=== PATIENT | female | born 1940 | race Caucasian/White ===

== ENCOUNTER 2018-08-18 07:19 | Inpatient (IN) ==
--- NOTE | 2018-08-18 07:55 | ED ---
HPI General Chief Complaint: Fall Stated Complaint: Hip/Fall Complaint Time Seen by Provider: 08/18/18 07:42 Source: patient Mode of arrival: ambulatory Limitations: no limitations History of Present Illness HPI Narrative: 78-year-old female patient with history of hypothyroidism, hypertension, currently on Eliquis, presents to the ER today because she states that she had fallen in the bathroom early this morning, fell onto her right hip area and had significant right hip pain, unable to get back on her feet, but was able to pull herself back up and get back into bed to wait for help. She denies hitting her head, loss of consciousness, or any other issues. She states that she slipped and fell. Related Data Home Medications Medication Instructions Recorded Confirmed apixaban [Eliquis] 5 mg PO BID 08/18/18 08/18/18 atenolol 25 mg PO DAILY 08/18/18 08/18/18 estradiol 1 mg PO DAILY 08/18/18 08/18/18 irbesartan 300 mg PO DAILY 08/18/18 08/18/18 levothyroxine 100 mcg PO DAILY 08/18/18 08/18/18 loratadine 10 mg PO DAILY 08/18/18 08/18/18 omeprazole 20 mg PO DAILY 08/18/18 08/18/18 rosuvastatin 10 mg PO DAILY 08/18/18 08/18/18 Allergies Allergy/AdvReac Type Severity Reaction Status Date / Time penicillin G Allergy Severe Rash Verified 08/18/18 07:48 Review of Systems ROS: all other systems reviewed are negative PMFSH History History Provided By: Patient Medical History Medical History 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 Awake and oriented x3. SKIN: Focused skin assessment warm/dry. HEAD: Atraumatic. Normocephalic. EYES: Pupils equal and round. No scleral icterus. No injection or drainage. ENT: No nasal bleeding or discharge. Mucous membranes pink and moist. NECK: Trachea midline. No JVD. CARDIOVASCULAR: Regular rate and rhythm. No murmur appreciated. RESPIRATORY: No accessory muscle use. Clear to auscultation. Breath sounds equal bilaterally. GASTROINTESTINAL: Abdomen soft, non-tender, nondistended. Hepatic and splenic margins not palpable. EXTREMITIES: No clubbing, cyanosis, or edema. No joint tenderness, effusion, or edema noted. Pelvis is stable, tender palpation in the right hip. Hip is held in external rotation, decreased flexion secondary to pain. MUSCULOSKELETAL: No obvious deformities. No clubbing. No cyanosis. No edema. NEUROLOGICAL: Awake and alert. No obvious cranial nerve deficits. Motor grossly within normal limits. Normal speech. PSYCHIATRIC: Appropriate mood and affect; insight and judgment normal. Course Initial Documented Vital Signs Temperature 98.1 F 08/18/18 07:35 Pulse Rate 67 08/18/18 07:35 Respiratory Rate 22 08/18/18 07:35 Blood Pressure 201/79 H 08/18/18 07:35 Last Documented Vital Signs Temperature 98.1 F 08/18/18 07:35 Pulse Rate 67 08/18/18 07:35 Respiratory Rate 22 08/18/18 07:35 Blood Pressure 201/79 H 08/18/18 07:35 Medical Decision Making MDM Narrative Medical decision making narrative: Patient has a subcapital right hip fracture. Case is discussed with Dr. Jaeger who plans to take her to the OR today. Case was discussed with Dr. Biggs for admission for further medical management. Medical Screen Exam Complete: Yes Emergency Medical Condition: Yes Differential Diagnosis Differential Diagnosis: Fractures versus dislocation versus contusion versus strain Lab Data Lab results reviewed: Yes I reviewed the patient's lab results. Result diagrams: 08/18/18 07:51 08/18/18 07:51 Lab Results 08/18/18 08/18/18 Range/Units 07:51 07:51 WBC 6.2 (4.0-11.0) th/mm3 RBC 4.37 (4.00-5.30) mil/mm3 Hgb 13.1 (11.6-15.3) gm/dL Hct 39.0 (35.0-46.0) % MCV 89.3 (80.0-100.0) fL MCH 30.1 (27.0-34.0) pg MCHC 33.7 (32.0-36.0) % RDW 14.1 (11.6-17.2) % Plt Count 175 (150-450) th/mm3 MPV 8.1 (7.0-11.0) fL Neut % (Auto) 64.8 (16.0-70.0) % Lymph % (Auto) 25.8 (9.0-44.0) % [place] % (Auto) 7.4 (0.0-8.0) % Eos % (Auto) 1.4 (0.0-4.0) % Baso % (Auto) 0.6 (0.0-2.0) % Neut # (Auto) 4.0 (1.8-7.7) th/mm3 Lymph # (Auto) 1.6 (1.0-4.8) th/mm3 [place] # (Auto) 0.5 (0.0-0.9) th/mm3 Eos # (Auto) 0.1 (0.0-0.4) th/mm3 Baso # (Auto) 0.0 (0.0-0.2) th/mm3 WBC Differential . Differential Comment Auto diff final Sodium 132 L (136-145) meq/L Potassium 3.8 (3.5-5.1) meq/L Chloride 100 (98-107) meq/L Carbon Dioxide 23.8 (21.0-32.0) meq/L Anion Gap 8 (5-15) meq/L BUN 19 H (7-18) mg/dL Creatinine 1.14 H (0.50-1.00) mg/dL Estimated GFR 46 L (>89) mL/min Random Glucose 104 (74-106) mg/dL Calcium 8.7 (8.5-10.1) mg/dL Total Bilirubin 0.3 (0.2-1.0) mg/dL AST 23 (15-37) U/L ALT 27 (10-53) U/L Alkaline Phosphatase 74 (45-117) U/L Total Protein 6.8 (6.4-8.2) g/dL Albumin 3.6 (3.4-5.0) g/dL Imaging Data Attestation: I personally reviewed and interpreted this imaging study as follows : Radiologist's impression: Chest X-Ray 08/18/18 07:42 CONCLUSION: No acute cardiopulmonary disease. Hip X-Ray 08/18/18 07:42 CONCLUSION: Right subcapital hip fracture. Discharge Plan Discharge Disposition Patient Disposition: 30 Still Patient Discharge Condition Condition: Good Discharge Details Anticipated Discharge Date: 08/18/18 Diagnosis: Closed hip fracture Physicians Team ED Provider: Anupama Logan Primary Care Provider: Raimundo Vogel Attending Provider: David Biggs Status ED Status: Admitted Patient
[2018-08-18 08:05] LABS: Baso % (Auto) 0.6 % (0.0-2.0); Eos # (Auto) 0.1 th/mm3 (0.0-0.4); Eos % (Auto) 1.4 % (0.0-4.0); Hemoglobin 13.1 gm/dL (11.6-15.3); Lymph # (Auto) 1.6 th/mm3 (1.0-4.8); Lymph % (Auto) 25.8 % (9.0-44.0); Mean Corpuscular HGB Conc 33.7 % (32.0-36.0); Mean Corpuscular Hemoglobin 30.1 pg (27.0-34.0); Mean Corpuscular Volume 89.3 fL (80.0-100.0); Mean Platelet Volume 8.1 fL (7.0-11.0); Mono # (Auto) 0.5 th/mm3 (0.0-0.9); Mono % (Auto) 7.4 % (0.0-8.0); Neut % (Auto) 64.8 % (16.0-70.0); Platelet Count 175 th/mm3 (150-450); Red Blood Count 4.37 mil/mm3 (4.00-5.30); Red Cell Distribution Width 14.1 % (11.6-17.2); White Blood Count 6.2 th/mm3 (4.0-11.0)
--- NOTE | 2018-08-18 08:26 | XR ---
EXAM DATE: 08/18/2018 7:42 AM EDT AGE/SEX: 78 years / Female INDICATIONS: Chest pain after fall. CLINICAL DATA: This is the patient's initial encounter. Patient reports that signs and symptoms have been present for 1 day and indicates a pain score of 5/10. MEDICAL/SURGICAL HISTORY: None. None. COMPARISON: No prior exams available for comparison. FINDINGS: 2 AP supine views of the chest were obtained and demonstrate no confluent infiltrates or effusions. T he heart and mediastinal structures are within normal limits. The soft tissues and bony thorax are un remarkable. There are overlying electrical artery gram leads. CONCLUSION: No acute cardiopulmonary disease. Electronically signed by: Greg Pacheco MD 08/18/2018 8:25 AM EDT
[2018-08-18 08:27] LABS: Alanine Aminotransferase 27 U/L (10-53)
[2018-08-18 08:29] LABS: Alkaline Phosphatase 74 U/L (45-117); Total Protein 6.8 g/dL (6.4-8.2)
[2018-08-18 08:31] LABS: Albumin 3.6 g/dL (3.4-5.0); Anion Gap 8 meq/L (5-15); Aspartate Aminotransferase 23 U/L (15-37); Blood Urea Nitrogen 19 mg/dL (7-18); Calcium 8.7 mg/dL (8.5-10.1); Carbon Dioxide 23.8 meq/L (21.0-32.0); Chloride 100 meq/L (98-107); Glomerular Filtration Rate 46 mL/min (>89); Glucose,Random 104 mg/dL (74-106); Potassium 3.8 meq/L (3.5-5.1); Sodium 132 meq/L (136-145)
--- NOTE | 2018-08-18 08:33 | XR ---
EXAM DATE: 08/18/2018 7:42 AM EDT AGE/SEX: 78 years / Female INDICATIONS: Right hip pain after fall. Decreased range of motion.. CLINICAL DATA: This is the patient's initial encounter. Patient reports that signs and symptoms have been present for 1 day and indicates a pain score of 10/10. MEDICAL/SURGICAL HISTORY: None. None. COMPARISON: No prior exams available for comparison. FINDINGS: AP and crosstable lateral views of the right hip were obtained and demonstrate a subcapital fracture with mild localized rotation of the femoral head component and slight superior migration of the or di stal femur. There is diffuse osteopenia. The acetabulum and right pubic rami are intact. CONCLUSION: Right subcapital hip fracture. Electronically signed by: Greg Pacheco MD 08/18/2018 8:32 AM EDT
[2018-08-18] MEDS ORDERED: HYDROmorphone PF Inj 2 MG/ML Vial IV.PUSH ONE (09:14)
[2018-08-18] MEDS ORDERED: Acetaminophen 325 MG Tablet PO PRN (09:39)
[2018-08-18] MEDS ORDERED: HYDROmorphone PF Inj 0.5 MG/0.5 ML Syringe IV.PUSH PRN (09:42)
--- NOTE | 2018-08-18 10:33 | P.HP ---
History of Present Illness Primary Care Physician: Raimundo Vogel History of Present Illness: 78-year-old female with a history of atrial fibrillation, hypothyroidism, lumbar stenosis, presents to the ER after suffering a right side hip fracture early this morning. She states she wakes approximately every 2 hours due to incontinence issues, after urinating she tripped on her pajamas at her ankles and fell onto her right hip experiencing immediate pain and inability to get up. She denies any trauma to her upper extremities or shoulders or head. She has a history of lumbar stenosis which is made her balance impaired in her lower extremities, she has been using a cane or walker at times at her baseline. She walks around the house without effort, but tires easily when she is out shopping. Her atrial fibrillation was diagnosed 2 years ago, it is paroxysmal and occurs episodically only every few days. Currently in the ER despite her stress she has a normal sinus rhythm. Hypothyroidism is well managed and she has no other major medical issues. She denies any nausea vomiting or diarrhea. Denies dysuria, denies chest pain, denies shortness of breath, denies diaphoresis, denies any clotting disorder. Her last dose of Eliquis was greater than 24 hours ago, she skipped this morning's dose. Inpatient Certification: I certify that the inpatient services were ordered in accordance with Medicare regulations governing the order. This includes certification that hospital inpatient services are reasonable and necessary and in the case of services not specified as inpatient-only under 42 CFR 419.22(n), that they are appropriately provided as inpatient services in accordance to with the 2-midnight benchmark under 43 CFR 412.3(e) Estimated Total Length of Stay (Days): 4 Plans for Post Hospital Care: Not yet determined Review of Systems All other systems reviewed negative except as stated in HPI PMFSH - History History Provided By: Patient - Medical History Medical History: Medical History (Last Updated 08/18/18 @ 10:25 by David Biggs MD) Atrial fibrillation GBS (Guillain [place] syndrome) Hypertension TIA (transient ischemic attack) - Surgical History Surgical History: Surgical History (Last Updated 08/18/18 @ 10:26 by David Biggs MD) H/O dilation and curettage - Family History Family History: Family History (Last Updated 08/18/18 @ 10:26 by David Biggs MD) Other Hypertension - Tobacco History Second Hand Smoke Exposure: No Smoking Status: Never smoker - Alcohol History How Often Do You Have a Drink Containing Alcohol: Monthly or less - Immunization History Tetanus Immunization: >5 Years Medications and Allergies Active Medications: Active Medications Acetaminophen (Tylenol) 650 mg PO Q4H PRN PRN Reason: Temp > 100.4 Hydromorphone HCl (Dilaudid Pf Inj) 0.5 mg IV.PUSH Q4H PRN PRN Reason: Hip Pain Sodium Chloride (Ns Inj) 1,000 mls @ 42 mls/hr IV.CONT .[id number] [facility] Ondansetron HCl (Zofran Inj) 4 mg IV.PUSH Q6H PRN PRN Reason: NAUSEA OR VOMITING Sennosides (Senokot) 17.2 mg PO Q12H PRN PRN Reason: Moderate Constipation Allergies Allergy/AdvReac Type Severity Reaction Status Date / Time penicillin G Allergy Severe Rash Verified 08/18/18 07:48 Home Medications Medication Instructions Recorded Confirmed Type apixaban [Eliquis] 5 mg PO BID 08/18/18 08/18/18 History atenolol 25 mg PO DAILY 08/18/18 08/18/18 History estradiol 1 mg PO DAILY 08/18/18 08/18/18 History irbesartan 300 mg PO DAILY 08/18/18 08/18/18 History levothyroxine 100 mcg PO DAILY 08/18/18 08/18/18 History loratadine 10 mg PO DAILY 08/18/18 08/18/18 History omeprazole 20 mg PO DAILY 08/18/18 08/18/18 History rosuvastatin 10 mg PO DAILY 08/18/18 08/18/18 History Exam Vital signs: Vital Signs 08/18/18 07:35 Temperature 98.1 F Pulse Rate 67 Respiratory Rate 22 Blood Pressure 201/79 H Intake & Output 08/17/18 08/18/18 08/18/18 18:59 06:59 18:59 Weight 95 kg Narrative: GENERAL: AAOx3, no acute distress, adequate nutrition SKIN: Warm and dry, no rashes. HEAD: Atraumatic. Normocephalic. EYES: Pupils equal, round, reactive to light. No scleral icterus. No injection or drainage. ENT: No nasal bleeding or discharge. Moist mucous membranes. Nonerythematous oropharynx. NECK: Trachea midline. No JVD. Thyroid size within normal limits. CARDIOVASCULAR: Regular rate and rhythm. No murmur, no gallops, no rubs. RESPIRATORY: Clear and equal to auscultation bilaterally. No crackles, no wheezes. No accessory muscle use. GASTROINTESTINAL: Abdomen soft, non-tender, nondistended, normal active bowel sounds. Hepatic and splenic margins not palpable. MUSCULOSKELETAL: Right hip with reduced range of motion secondary to fracture, tender, right foot slightly laterally angled NEUROLOGICAL: Awake and alert. No obvious cranial nerve deficits. Motor grossly within normal limits. No focal deficits. Five out of 5 muscle strength in the arms and legs. Normal speech. PSYCHIATRIC: Appropriate mood and affect; insight and judgment normal. Results - Labs CBC & Chem 7: 08/18/18 07:51 08/18/18 07:51 Labs: Laboratory Results - last 24 hr 08/18/18 08/18/18 07:51 07:51 WBC 6.2 RBC 4.37 Hgb 13.1 Hct 39.0 MCV 89.3 MCH 30.1 MCHC 33.7 RDW 14.1 Plt Count 175 MPV 8.1 Neut % (Auto) 64.8 Lymph % (Auto) 25.8 [place] % (Auto) 7.4 Eos % (Auto) 1.4 Baso % (Auto) 0.6 Neut # (Auto) 4.0 Lymph # (Auto) 1.6 [place] # (Auto) 0.5 Eos # (Auto) 0.1 Baso # (Auto) 0.0 WBC Differential . Differential Comment Auto diff final Sodium 132 L Potassium 3.8 Chloride 100 Carbon Dioxide 23.8 Anion Gap 8 BUN 19 H Creatinine 1.14 H Estimated GFR 46 L Random Glucose 104 Calcium 8.7 Total Bilirubin 0.3 AST 23 ALT 27 Alkaline Phosphatase 74 Total Protein 6.8 Albumin 3.6 - Imaging Impressions Chest X-Ray 08/18/18 07:42 CONCLUSION: No acute cardiopulmonary disease. Hip X-Ray 08/18/18 07:42 CONCLUSION: Right subcapital hip fracture. Caprini VTE Risk Assessment Caprini VTE Risk Assessment: Moderate/High Risk (score >= 2) Caprini Risk Assessment Model: Point Value = 1 Point Value = 2 Point Value = 3 Point Value = 5 Age 41-60 Minor surgery BMI > 25 kg/m2 Swollen legs Varicose veins or History of unexplained or recurrent spontaneous Oral contraceptives or hormone replacement Sepsis (< 1 month) Serious lung disease, including pneumonia (< 1 month) Abnormal pulmonary function Acute myocardial infarction Congestive heart failure (< 1 month) History of inflammatory bowel disease Medical patient at bed rest Age 61-74 Arthroscopic surgery Major open surgery (> 45 min) Laparoscopic surgery (> 45 min) Malignancy Confined to bed (> 72 hours) Immobilizing plaster cast Central venous access Age >= 75 History of VTE Family history of VTE Factor V Leiden Prothrombin [id number] Lupus anticoagulant Anticardiolipin antibodies Elevated serum homocysteine Heparin-induced thrombocytopenia Other congenital or acquired thrombophilia Stroke (< 1 month) Elective arthroplasty Hip, pelvis, or leg fracture Acute spinal cord injury (< 1 month) Prophylaxis Regimen: Total Risk Factor Score Risk Level Prophylaxis Regimen 0-1 Low Early ambulation 2 Moderate Order ONE of the following: *Sequential Compression Device (SCD) *Heparin 5000 units SQ BID 3-4 Higher Order ONE of the following medications: *Heparin 5000 units SQ TID *Enoxaparin/Lovenox 40 mg SQ daily (WT < 150 kg, CrCl > 30 mL/min) *Enoxaparin/Lovenox 30 mg SQ daily (WT < 150 kg, CrCl > 10-29 mL/min) *Enoxaparin/Lovenox 30 mg SQ BID (WT < 150 kg, CrCl > 30 mL/min) AND/OR *Sequential Compression Device (SCD) 5 or more Highest Order ONE of the following medications: *Heparin 5000 units SQ TID (Preferred with Epidurals) *Enoxaparin/Lovenox 40 mg SQ daily (WT < 150 kg, CrCl > 30 mL/min) *Enoxaparin/Lovenox 30 mg SQ daily (WT < 150 kg, CrCl > 10-29 mL/min) *Enoxaparin/Lovenox 30 mg SQ BID (WT < 150 kg, CrCl > 30 mL/min) AND *Sequential Compression Device (SCD) Assessment and Plan - Plan Right hip fracture Subcapital fracture of right hip following fall at home onto the bathroom floor This is her first fracture, her first surgery Her last dose of Eliquis was greater than 24 hours ago, yesterday morning, she skipped this morning's dose Orthopedics is consulted and requesting medical clearance Patient will be kept n.p.o. for likely surgery later today Appreciate orthopedics consult h/o atrial fibrillation Patient takes Eliquis for paroxysmal atrial fibrillation, infrequent occurrence She is currently in normal sinus rhythm without any cardiac arrhythmias on heart monitor She had a full cardiac workup within the last 2 years including stress test which was negative Continue to monitor on telemetry, resume Eliquis postop when safe h/o hypothyroidism Continue home dose of levothyroxine when p.o. resumed h/o spinal stenosis Patient has some debility from chronic spinal stenosis, she uses walker or cane outside of home Based on her function is possible she will need rehab placement upon discharge DVT prophylaxis SCDs prior to surgery, resume Eliquis postop, timing per discretion of orthopedic surgeon Medical clearance for surgery She has a complete cardiac workup which was negative in the last 2 years, stable normal sinus rhythm despite periodic episodes of A. fib She is overall low to moderate risk profile and should be considered medically cleared for surgery
[2018-08-18] MEDS: Sod Chloride 0.9% Inj 1,000 ML IV.CONT SCH (12:29)
[2018-08-18] MEDS ORDERED: HYDROmorphone PF Inj 1 MG/ML Ampul IV.PUSH ONE (12:30)
--- NOTE | 2018-08-18 13:01 | P.CONOP ---
[facility] Orthopedics Consult Note - HPI Consult date: 08/18/18 Chief complaint: fall, hip fracture Review of Systems Constitutional: Denies fever(s), Denies night sweats, Denies weight loss Eyes: Denies blurry vision Ears, Nose, Mouth, and Throat: Denies abnormal hearing Cardiovascular: Denies chest pain Respiratory: Denies chest congestion, Denies cough Gastrointestinal: Denies abdominal pain, Denies vomiting Musculoskeletal: Reports joint pain Neurologic: Denies tingling/numbness/burning sensations Psychiatric: Denies anxiety, Denies depression [facility] - History History Provided By: Patient - Medical History Medical History: Medical History (Last Updated 08/18/18 @ 10:25 by David Biggs MD) Atrial fibrillation GBS (Guillain [place] syndrome) Hypertension TIA (transient ischemic attack) - Surgical History Surgical History: Surgical History (Last Reviewed 08/18/18 @ 12:56 by Agapito Meyers MD) H/O dilation and curettage - Family History Family History: Family History (Last Updated 08/18/18 @ 10:26 by David Biggs MD) Other Hypertension - Tobacco History Second Hand Smoke Exposure: No Smoking Status: Never smoker - Alcohol History How Often Do You Have a Drink Containing Alcohol: Monthly or less - Immunization History Tetanus Immunization: >5 Years Medications and Allergies Active Medications: Active Medications Acetaminophen (Tylenol) 650 mg PO Q4H PRN PRN Reason: Temp > 100.4 Atenolol (Tenormin) 25 mg PO DAILY [facility] Hydromorphone HCl (Dilaudid Pf Inj) 0.5 mg IV.PUSH Q4H PRN PRN Reason: Hip Pain Sodium Chloride (Ns Inj) 1,000 mls @ 42 mls/hr IV.CONT .[id number] [facility] Last Admin: 08/18/18 12:29 Dose: 42 mls/hr Levothyroxine Sodium (Synthroid) 100 mcg PO DAILY [facility] Ondansetron HCl (Zofran Inj) 4 mg IV.PUSH Q6H PRN PRN Reason: NAUSEA OR VOMITING Pantoprazole Sodium (Protonix) 20 mg PO DAILY [facility] Sennosides (Senokot) 17.2 mg PO Q12H PRN PRN Reason: Moderate Constipation Allergies Allergy/AdvReac Type Severity Reaction Status Date / Time penicillin G Allergy Severe Rash Verified 08/18/18 07:48 Home Medications Medication Instructions Recorded Confirmed Type apixaban [Eliquis] 5 mg PO BID 08/18/18 08/18/18 History atenolol 25 mg PO DAILY 08/18/18 08/18/18 History estradiol 1 mg PO DAILY 08/18/18 08/18/18 History irbesartan 300 mg PO DAILY 08/18/18 08/18/18 History levothyroxine 100 mcg PO DAILY 08/18/18 08/18/18 History loratadine 10 mg PO DAILY 08/18/18 08/18/18 History omeprazole 20 mg PO DAILY 08/18/18 08/18/18 History rosuvastatin 10 mg PO DAILY 08/18/18 08/18/18 History Exam Vital signs: Vital Signs 08/18/18 07:35 08/18/18 11:17 Temperature 98.1 F Pulse Rate 67 62 Respiratory Rate 22 20 Blood Pressure 201/79 H 179/73 H Intake & Output 08/17/18 08/18/18 08/18/18 18:59 06:59 18:59 Weight 95 kg - Constitutional no acute distress - Routine HEENT Exam Head: Present: normocephalic, atraumatic Eye: Present: PERRL - Routine Respiratory Exam Absent: accessory muscle use - Routine Cardiovascular Exam Comments: Atrial fibrillation - Routine Abdominal Exam Present: soft, distended - Routine Extremities Exam Comments: Screening evaluation to left lower and bilateral upper extremities demonstrates no pain with passive ROM of the extremities. Focused evaluation of the right lower extremity demonstrates positive log roll. Sensation is intact to the sural /saphenous/SP/DP/tibial nerve distribution. +EHL/FHL/gastroc/TA. Negative log roll on left hip. 2+ DP/PT pulses bilaterally. - Routine Skin Exam Present: intact - Routine Neurological Exam Present: alert, oriented X3 Results - Labs Result Diagrams: 08/18/18 07:51 08/18/18 07:51 Labs: Laboratory Results - last 24 hr 08/18/18 08/18/18 07:51 07:51 WBC 6.2 RBC 4.37 Hgb 13.1 Hct 39.0 MCV 89.3 MCH 30.1 MCHC 33.7 RDW 14.1 Plt Count 175 MPV 8.1 Neut % (Auto) 64.8 Lymph % (Auto) 25.8 [place] % (Auto) 7.4 Eos % (Auto) 1.4 Baso % (Auto) 0.6 Neut # (Auto) 4.0 Lymph # (Auto) 1.6 [place] # (Auto) 0.5 Eos # (Auto) 0.1 Baso # (Auto) 0.0 WBC Differential . Differential Comment Auto diff final Sodium 132 L Potassium 3.8 Chloride 100 Carbon Dioxide 23.8 Anion Gap 8 BUN 19 H Creatinine 1.14 H Estimated GFR 46 L Random Glucose 104 Calcium 8.7 Total Bilirubin 0.3 AST 23 ALT 27 Alkaline Phosphatase 74 Total Protein 6.8 Albumin 3.6 - Diagnostic results Imaging: Impressions Chest X-Ray 08/18/18 07:42 CONCLUSION: No acute cardiopulmonary disease. Hip X-Ray 08/18/18 07:42 CONCLUSION: Right subcapital hip fracture. Assessment and Plan - Assessment and Plan 1. Right femoral neck fracture, displaced 2. History of TIA on Eliquis I had a thorough discussion with Isabel and her daughter regarding recommendations for right hip bipolar hemiarthroplasty. Risks, benefits, expected post-op course was reviewed. [facility] [place] Multi-modal pain control NPO at midnight HOLD ELIQUIS [facility] co-management. We will make plans for right hip hemiarthroplasty to be performed on 08/19, which will be 48 hours after last Eliquis dose. All questions and concerns addressed to patient's and family's apparent satisfaction.
[2018-08-18] MEDS: HYDROmorphone PF Inj 1 MG/ML Ampul IV.PUSH PRN ×2 (16:35→21:29)
--- NOTE | 2018-08-18 17:45 | P.PN ---
Subjective Interval history: Patient not seen Physical Exam Vital signs: Vital Signs 08/18/18 07:35 08/18/18 11:17 08/18/18 12:00 Temperature 98.1 F 97.6 F Pulse Rate 67 62 57 L Respiratory Rate 22 20 16 Blood Pressure 201/79 H 179/73 H 176/79 H Pulse Oximetry 100 Intake & Output 08/17/18 08/18/18 08/18/18 18:59 06:59 18:59 Output Total 50 / 50 Balance -50 / -50 Weight 95 kg Output: Urine 50 / 50 Other: Date of Last Bowel Movement 08/17/18 Narrative: GENERAL: AAOx3, no acute distress, adequate nutrition SKIN: Warm and dry, no rashes. CARDIOVASCULAR: Regular rate and rhythm. No murmur, no gallops, no rubs. RESPIRATORY: Clear and equal to auscultation bilaterally. No crackles, no wheezes. No accessory muscle use. GASTROINTESTINAL: Abdomen soft, non-tender, nondistended, normal active bowel sounds. MUSCULOSKELETAL: Right hip with reduced range of motion secondary to fracture, tender, right foot slightly laterally angled NEUROLOGICAL: Awake and alert. No obvious cranial nerve deficits. Motor grossly within normal limits. No focal deficits. Five out of 5 muscle strength in the arms and legs. Normal speech. PSYCHIATRIC: Appropriate mood and affect; insight and judgment normal. Results - Labs CBC & Chem 7: 08/18/18 07:51 08/18/18 07:51 Laboratory Results - last 24 hr 08/18/18 08/18/18 07:51 07:51 WBC 6.2 RBC 4.37 Hgb 13.1 Hct 39.0 MCV 89.3 MCH 30.1 MCHC 33.7 RDW 14.1 Plt Count 175 MPV 8.1 Neut % (Auto) 64.8 Lymph % (Auto) 25.8 [place] % (Auto) 7.4 Eos % (Auto) 1.4 Baso % (Auto) 0.6 Neut # (Auto) 4.0 Lymph # (Auto) 1.6 [place] # (Auto) 0.5 Eos # (Auto) 0.1 Baso # (Auto) 0.0 WBC Differential . Differential Comment Auto diff final Sodium 132 L Potassium 3.8 Chloride 100 Carbon Dioxide 23.8 Anion Gap 8 BUN 19 H Creatinine 1.14 H Estimated GFR 46 L Random Glucose 104 Calcium 8.7 Total Bilirubin 0.3 AST 23 ALT 27 Alkaline Phosphatase 74 Total Protein 6.8 Albumin 3.6 - Imaging Impressions ITS Impressions Chest X-Ray 08/18/18 07:42 CONCLUSION: No acute cardiopulmonary disease. Hip X-Ray 08/18/18 07:42 CONCLUSION: Right subcapital hip fracture. Assessment and Plan - Plan Right hip fracture Subcapital fracture of right hip following fall at home onto the bathroom floor This is her first fracture, her first surgery Her last dose of Eliquis was greater than 24 hours ago, 08/17 morning Orthopedics is consulted and planning to take patient to OR today h/o atrial fibrillation Patient takes Eliquis for paroxysmal atrial fibrillation, infrequent occurrence She is currently in normal sinus rhythm without any cardiac arrhythmias on heart monitor She had a full cardiac workup within the last 2 years including stress test which was negative Continue to monitor on telemetry, resume Eliquis postop when safe h/o hypothyroidism Continue home dose of levothyroxine when p.o. resumed h/o spinal stenosis Patient has some debility from chronic spinal stenosis, she uses walker or cane outside of home Based on her function is possible she will need rehab placement upon discharge DVT prophylaxis SCDs prior to surgery, resume Eliquis postop, timing per discretion of orthopedic surgeon Discharge Planning: per ortho
--- NOTE | 2018-08-18 19:29 | ECG ---
Date Performed: 08/18/2018 Time Performed: 13:00:36 PTAGE: 78 years EKG: SINUS BRADYCARDIA MARKED LEFT AXIS DEVIATION SEPTAL Q WAVES ABNORMAL ECG PREVIOUS TRACING : 05/19/1995 10.46 Since the previous tracing, no significant change noted DOCTOR: Claudia Ceja Interpretating Date/Time 08/18/2018 19:29:35
[2018-08-19] MEDS ORDERED: Chlorhexidine Gluconate 2% 1 Pack (2 Cloths) TOPICAL ONE (01:31)
[2018-08-19] MEDS ORDERED: Metoprolol Tartrate 25 MG Tablet PO ONE (01:31)
[2018-08-19] MEDS: HYDROmorphone PF Inj 1 MG/ML Ampul IV.PUSH PRN ×3 (01:34→09:44)
[2018-08-19] MEDS ORDERED: Sodium Chlor 0.9% Inj 500 ML IV.SIG SCH (02:00)
[2018-08-19 07:17] LABS: Activated Partial Thrombo Time 28.9 sec (24.3-30.1); Prothrombin Time 10.3 sec (9.8-11.6)
--- NOTE | 2018-08-19 08:34 | P.PN ---
Subjective Interval history: Follow-up hip fracture. Complains of hip pain getting anxious awaiting for surgery. Seen with daughter. Physical Exam Vital signs: Vital Signs 08/18/18 11:17 08/18/18 12:00 08/18/18 16:00 Temperature 97.6 F 98.0 F Pulse Rate 62 57 L 63 Respiratory Rate 20 16 16 Blood Pressure 179/73 H 176/79 H 149/89 H Pulse Oximetry 100 96 08/18/18 19:03 08/18/18 21:00 08/18/18 23:17 Temperature 97.8 F 98.1 F Pulse Rate 65 68 99 H Respiratory Rate 18 18 Blood Pressure 162/78 H 154/67 H Pulse Oximetry 96 98 08/19/18 00:00 08/19/18 03:34 08/19/18 04:01 Temperature 97.8 F Pulse Rate 73 63 69 Respiratory Rate 18 Blood Pressure 148/69 H Pulse Oximetry 97 Intake & Output 08/18/18 08/19/18 08/19/18 18:59 06:59 18:59 Intake Total 240 / 240 360 / 360 Output Total 50 / 50 675 / 675 Balance 190 / 190 -315 / -315 Weight 95 kg 67.5 kg Intake: Oral 240 / 240 360 / 360 Output: Urine 50 / 50 Urine Amount (Catheter) 675 / 675 Indwelling Urethral Catheter 675 / 675 Other: Date of Last Bowel Movement 08/17/18 08/17/18 # Bowel Movements 0 Narrative: GENERAL: AAOx3, no acute distress, adequate nutrition SKIN: Warm and dry, no rashes. CARDIOVASCULAR: Regular rate and rhythm. No murmur, no gallops, no rubs. RESPIRATORY: Clear and equal to auscultation bilaterally. No crackles, no wheezes. No accessory muscle use. GASTROINTESTINAL: Abdomen soft, non-tender, nondistended, normal active bowel sounds. MUSCULOSKELETAL: Right hip with reduced range of motion secondary to fracture, tender, right foot slightly laterally angled NEUROLOGICAL: Awake and alert. No obvious cranial nerve deficits. Motor grossly within normal limits. No focal deficits. Five out of 5 muscle strength in the arms and legs. Normal speech. - Urinary Catheter Management Indwelling Urethral Catheter Cath placed during this visit: yes Reason for continuing: Other continuation reason Insertion date: 08/18/18 Insertion time: 16:45 Results - Labs CBC & Chem 7: 08/18/18 07:51 08/18/18 07:51 Laboratory Results - last 24 hr 08/19/18 06:50 PT 10.3 INR 1.0 APTT 28.9 - Imaging Impressions Hip X-Ray 08/18/18 07:42 CONCLUSION: Right subcapital hip fracture. Assessment and Plan - Plan Right hip fracture Subcapital fracture of right hip following fall at home onto the bathroom floor Her last dose of Eliquis was greater than 24 hours ago, 08/17 morning Orthopedics is consulted Pain management with Lortab and IV Dilaudid. h/o atrial fibrillation Patient takes Eliquis for paroxysmal atrial fibrillation, infrequent occurrence She is currently in normal sinus rhythm without any cardiac arrhythmias on heart monitor She had a full cardiac workup within the last 2 years including stress test which was negative Continue to monitor on telemetry, resume Eliquis postop when safe h/o hypothyroidism Continue home dose of levothyroxine when p.o. 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
[2018-08-19] MEDS ORDERED: Naloxone Inj 0.4 MG/ML Vial IV.PUSH PRN (08:38)
[2018-08-19] MEDS: Atenolol 25 MG Tablet PO SCH (09:44)
[2018-08-19] MEDS: Pantoprazole Sodium 20 MG DR Tablet PO SCH (09:44)
[2018-08-19] MEDS: Levothyroxine 100 MCG Tablet PO SCH (09:44)
[2018-08-19] MEDS ORDERED: Phenylephrine/NS 1000 MCG/10ML Syringe IV.PUSH ONE (11:19)
[2018-08-19] MEDS ORDERED: Lidocaine PF 1% Inj 5 ML Syringe OTHER ONE (11:19)
[2018-08-19] MEDS ORDERED: Clindamycin Inj 900 MG/6 ML Vial ONE (11:20)
[2018-08-19] MEDS ORDERED: Tranexamic Acid Inj 1,000 MG/10 ML Ampul ONE (12:08)
[2018-08-19] MEDS ORDERED: *Promethazine Inj 25 MG/ML Vial PERIprocedural use ONLY ONE (14:03)
[2018-08-19] MEDS ORDERED: fentaNYL Citrate Inj 100 MCG/2 ML Ampul ONE (14:04)
[2018-08-19] MEDS ORDERED: Morphine Inj 4 MG/ML Vial ONE (14:05)
[2018-08-19] MEDS ORDERED: *morphine SULFATE 4 MG/ML PERIprocedure ONLY ONE (14:12)
--- NOTE | 2018-08-19 14:18 | XR ---
EXAM DATE: 08/19/2018 12:00 AM EDT AGE/SEX: 78 years / Female INDICATIONS: Right post op Hip. CLINICAL DATA: This is the patient's initial encounter. Patient reports that signs and symptoms have been present for 1 day and indicates a pain score of Nonresponsive. MEDICAL/SURGICAL HISTORY: Non-responsive. Non-responsive. COMPARISON: [facility], HIP RIGHT W AP PELVIS 2V, 08/18/2018. . FINDINGS: Right hip arthroplasty in place. The distal femoral component is omitted from the image. Visualized c omponents are in anatomic alignment and well positioned. No acute bony fracture. CONCLUSION: 1. Partially imaged right hip arthroplasty in anatomic alignment without acute fracture. Electronically signed by: Efrain Bryan MD 08/19/2018 2:16 PM EDT
--- NOTE | 2018-08-19 16:21 | XR ---
EXAM DATE: 08/19/2018 12:00 AM EDT AGE/SEX: 78 years / Female INDICATIONS: Post total right hip. CLINICAL DATA: This is the patient's subsequent encounter. Patient reports that signs and symptoms h ave been present for 2 days and indicates a pain score of 10/10. MEDICAL/SURGICAL HISTORY: None. None. COMPARISON: [facility] [place], HIP RIGHT AP ONLY 1V, 08/19/2018. . FINDINGS: There are postoperative changes of right total hip placement. 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 No acute bony abnormalities. CONCLUSION: Postoperative right total hip replacement. Normal alignment. No complications identified. Electronically signed by: Harry Muñoz MD 08/19/2018 4:19 PM EDT
[2018-08-19] MEDS: Sod Chloride 0.9% Inj 1,000 ML IV.CONT SCH (16:30)
[2018-08-19] MEDS: Clindamycin 900 mg/NS Premix 900 MG/50 ML PIGGYBACK IV.SIG SCH ×2 (16:30→23:20)
[2018-08-20] MEDS: Clindamycin 900 mg/NS Premix 900 MG/50 ML PIGGYBACK IV.SIG SCH ×2 (06:13→14:32)
[2018-08-20] MEDS: Atenolol 25 MG Tablet PO SCH (07:55)
[2018-08-20] MEDS: Pantoprazole Sodium 20 MG DR Tablet PO SCH (07:55)
[2018-08-20] MEDS: Levothyroxine 100 MCG Tablet PO SCH (07:55)
[2018-08-20 08:01] LABS: Baso % (Auto) 0.3 % (0.0-2.0); Eos # (Auto) 0.1 th/mm3 (0.0-0.4); Eos % (Auto) 0.8 % (0.0-4.0); Hematocrit 32.7 % (35.0-46.0); Hemoglobin 11.1 gm/dL (11.6-15.3); Lymph # (Auto) 0.8 th/mm3 (1.0-4.8); Lymph % (Auto) 12.3 % (9.0-44.0); Mean Corpuscular HGB Conc 33.9 % (32.0-36.0); Mean Corpuscular Hemoglobin 30.1 pg (27.0-34.0); Mean Corpuscular Volume 88.7 fL (80.0-100.0); Mean Platelet Volume 8.1 fL (7.0-11.0); Mono # (Auto) 0.6 th/mm3 (0.0-0.9); Mono % (Auto) 8.3 % (0.0-8.0); Neut # (Auto) 5.3 th/mm3 (1.8-7.7); Neut % (Auto) 78.3 % (16.0-70.0); Platelet Count 163 th/mm3 (150-450); Red Blood Count 3.68 mil/mm3 (4.00-5.30); Red Cell Distribution Width 13.9 % (11.6-17.2); White Blood Count 6.7 th/mm3 (4.0-11.0)
[2018-08-20 08:10] LABS: Carbon Dioxide 23.3 meq/L (21.0-32.0); Magnesium 1.9 mg/dL (1.5-2.5); Potassium 4.5 meq/L (3.5-5.1)
--- NOTE | 2018-08-20 10:17 | MP ---
cc: ,aNvi Meyers DATE OF OPERATION: 08/19/2018 PREOPERATIVE DIAGNOSIS: Right femoral neck fracture. POSTOPERATIVE DIAGNOSIS: Right femoral neck fracture. OPERATION PERFORMED: Right bipolar hemiarthroplasty for femoral neck fracture. SURGEON: Navi Meyers MD ANESTHESIA: General endotracheal anesthesia. ESTIMATED BLOOD LOSS: 50 mL. COMPLICATIONS: None. IMPLANTS USED: 1. Exactech Novation femoral stem, size 15, standard offset. 2. Right femoral head component. 3. Right, 49 mm, bipolar component. INDICATIONS FOR PROCEDURE: Please see history and physical for complete details. In summary, Mrs. Steel is a 78-year-old female who sustained a mechanical fall resulting in a femoral neck fracture. She presented to [facility]. I personally saw the patient yesterday. We discussed our recommendations for take back to the operating room for right hip bipolar hemiarthroplasty. She has a history of being on Eliquis for a TIA, and as such, we decided to wait 48 hours after her last Eliquis dosing for operative procedure. Relevant risks, benefits, expected postoperative course of surgical management were reviewed. Risks include, but are not limited to, damage to surrounding blood vessels or nerves, infection, wound healing issues, hardware failure, subsidence, limb length discrepancy, instability, continued pain, periprosthetic fracture, and need for future surgery. An ample opportunity was offered for questions to be answered and all questions were answered to her apparent satisfaction. She agreed to proceed with the surgery as per consent. DESCRIPTION OF PROCEDURE: The patient was identified in the preoperative holding area and the operative site was marked. They were then brought back to the operating room under the care of the anesthesiology team. They were positioned supine on the OR table. All bony prominences were padded. A per protocol timeout was performed during which the patient's identity, site, side and nature of procedure was confirmed. General anesthesia was induced without untoward effect, and endotracheal intubation was performed. The patient was then positioned in a left lateral decubitus position with the right side facing up. The right lower extremity was then prepped and draped in a routine strict and sterile fashion using triple prep solution and occlusive draping. A standard posterolateral approach was performed using sharp dissection through skin and subcutaneous tissue. The fascia was incised in line with the skin incision and gluteus himanshu fibers were spread atraumatically. The short external rotators and capsule were taken off the femur as close as possible to the femur, maintaining maximum length for later repair. These were tagged with a #2 FiberWire for later repair. The fracture site was then exposed. The femoral neck cut was then performed, being 50 mm proximal to the level of the lesser tuberosity. The femoral head was then extracted. The acetabulum was inspected and any retained soft tissue was removed. Further was ensured that there was no residual fracture fragments, both within the soft tissues or within the acetabulum. The femoral head was sized and found to be 49 mm in diameter. We then proceeded with preparation of the femur. The appropriate posterolateral starting point in the femur was created using the steam box hand. The canal was identified and overhanging neck is removed with a conical reamer. Broaching is done from a size 8 mm broach up to a size 15 mm broach with appropriate lateralization and anteversion. Trialing was done and a standard offset, 0 neck length was selected. The final implant was inserted and impacted gently with excellent press-fit, rotational stability and metaphyseal fill. The trunnion was cleaned and dried and the bipolar component was inserted and secured. The hip was then reduced. With the final implants in position, the soft tissue tension was appropriate. Leg length hindu was appropriate. The hip was very stable to provocative testing including full flexion, and extension, and external rotation. There is no impingement or dislocation. At mid flexion, we can rotate the hip to 70 degrees. At 90 degrees of flexion, we can rotate the hip to 60 degrees without impingement or dislocation. The hip was considered very stable. The sciatic nerve was tension free and continuous in its entirety. The hip was then thoroughly lavaged. Hemostasis was achieved. The short external rotators and capsule were repaired back to the femur with #2 FiberWires through transosseous tunnels. The superior capsulotomy, as well as the quadratus femoris, was repaired back to the femur with #1 Vicryl sutures. The fascia was closed with #1 Vicryl sutures in a horizontal mattress fashion with excellent electromechanical closure. This was oversewn with a #1 Stratafix. This achieved an excellent watertight closure. The subcutaneous tissues were closed in layers, first with 2-0 Vicryl for the deep layer, followed by 3-0 Vicryl for the superficial layer. The skin was closed with 3-0 Monocryl in a subcuticular manner and reinforced with Dermabond. A waterproof dressing was then applied and the patient was transferred to the recovery room in stable condition after reversal of anesthesia. All sponge and needle counts were correct x2. There were no complications. I was present for the entire duration of the case. POSTOPERATIVE RECOMMENDATIONS: 1. Weightbearing as tolerated to the right lower extremity. 2. Posterior hip precautions x6 weeks. DISPOSITION ON DISCHARGE: 1. custodial facility. 2. Outpatient followup in 2 weeks for a wound check. 3. Plan for continuation of her Eliquis starting on postoperative day #2. This will also provide deep venous thrombosis prophylaxis. Navi Meyers MD, CM/denise , 02:13 PM , 02:23 PM
--- NOTE | 2018-08-20 10:26 | P.PN ---
Subjective Interval history: Follow-up hip fracture. She is doing okay. Sitting at edge of the bed. She is passing gas no BM per Physical Exam Vital signs: Vital Signs 08/19/18 10:55 08/19/18 14:00 08/19/18 14:15 Temperature 98.3 F 97 F L Pulse Rate 64 60 57 L Respiratory Rate 16 10 L 19 Blood Pressure 168/79 H 163/76 H 142/55 H Pulse Oximetry 97 96 96 08/19/18 14:30 08/19/18 14:45 08/19/18 15:00 Temperature Pulse Rate 55 L 58 L 58 L Respiratory Rate 14 10 L 22 Blood Pressure 140/63 128/68 126/77 Pulse Oximetry 96 96 96 08/19/18 15:15 08/19/18 16:00 08/19/18 20:00 Temperature 97.8 F 97.2 F L 97.6 F Pulse Rate 59 L 55 L 56 L Respiratory Rate 17 20 15 Blood Pressure 153/64 H 150/70 H 139/60 Pulse Oximetry 96 92 L 94 L 08/19/18 20:10 08/20/18 00:00 08/20/18 00:05 Temperature 97.7 F Pulse Rate 58 L 61 67 Respiratory Rate 16 Blood Pressure 139/67 Pulse Oximetry 95 08/20/18 03:35 08/20/18 04:00 08/20/18 08:00 Temperature 97.5 F L 97.9 F Pulse Rate 67 65 65 Respiratory Rate 16 18 Blood Pressure 121/59 L 101/56 L Pulse Oximetry 94 L 90 L Intake & Output 08/19/18 08/20/18 08/20/18 18:59 06:59 18:59 Intake Total 1820 / 1820 50 / 50 Output Total 850 / 850 2600 / 2600 Balance 970 / 970 -2550 / -2550 Weight 67.5 kg Intake: IV 1000 / 1000 50 / 50 NS Inj 1,000 ML @ 42 mls/hr IV. 1000 / 1000 CONT .[id number] [facility] Rx#:[id number] Cleocin 900 mg/NS Premix 900 mg 50 / 50 In 50 ml @ 100 mls/hr IV.SIG Q8H [facility] Rx#:[id number] Oral 120 / 120 Anesthesia Amount 700 / 700 Output: Urine 650 / 650 Estimated Blood Loss 50 / 50 Urine Amount (Catheter) 800 / 800 1950 / 1950 Indwelling Urethral Catheter 800 / 800 1949 Other: Date of Last Bowel Movement 08/17/18 08/17/18 08/17/18 Narrative: GENERAL: AAOx3, no acute distress, adequate nutrition SKIN: Warm and dry, no rashes. CARDIOVASCULAR: Regular rate and rhythm. No murmur, no gallops, no rubs. RESPIRATORY: Clear and equal to auscultation bilaterally. No crackles, no wheezes. No accessory muscle use. GASTROINTESTINAL: Abdomen soft, non-tender, nondistended, normal active bowel sounds. MUSCULOSKELETAL: Dry dressing right hip NEUROLOGICAL: Awake and alert. No obvious cranial nerve deficits. Motor grossly within normal limits. No focal deficits. Five out of 5 muscle strength in the arms and legs. Normal speech. - Urinary Catheter Management Indwelling Urethral Catheter Cath placed during this visit: yes Reason for continuing: Other continuation reason Insertion date: 08/18/18 Insertion time: 16:45 Results - Labs CBC & Chem 7: 08/20/18 06:33 08/20/18 06:33 Laboratory Results - last 24 hr 08/20/18 08/20/18 06:33 06:33 WBC 6.7 RBC 3.68 L Hgb 11.1 L D Hct 32.7 L MCV 88.7 MCH 30.1 MCHC 33.9 RDW 13.9 Plt Count 163 MPV 8.1 Neut % (Auto) 78.3 H Lymph % (Auto) 12.3 [place] % (Auto) 8.3 H Eos % (Auto) 0.8 Baso % (Auto) 0.3 Neut # (Auto) 5.3 Lymph # (Auto) 0.8 L [place] # (Auto) 0.6 Eos # (Auto) 0.1 Baso # (Auto) 0.0 WBC Differential . Differential Comment Auto diff final Sodium 132 L Potassium 4.5 Chloride 101 Carbon Dioxide 23.3 Anion Gap 8 BUN 10 Creatinine 0.65 Estimated GFR 88 L Random Glucose 92 Calcium 8.0 L Magnesium 1.9 - Imaging ITS Impressions Chest X-Ray 08/18/18 07:42 CONCLUSION: No acute cardiopulmonary disease. Hip X-Ray 08/19/18 00:00 CONCLUSION: Postoperative right total hip replacement. Normal alignment. No complications identified. - Procedures Right bipolar hemiarthroplasty for femoral neck fracture. Assessment and Plan - Plan Right hip fracture Subcapital fracture of right hip following fall at home onto the bathroom floor Her last dose of Eliquis was greater than 24 hours ago, 08/17 morning Right bipolar hemiarthroplasty for femoral neck fracture. Continue postoperative care with incentive respiratory panel PT and wound care Pain management with Lortab and IV Dilaudid. h/o atrial fibrillation Patient takes Eliquis for paroxysmal atrial fibrillation, infrequent occurrence She is currently in normal sinus rhythm without any cardiac arrhythmias on heart monitor She had a full cardiac workup within the last 2 years including stress test which was negative Continue to monitor on telemetry, resume Eliquis postop when safe h/o hypothyroidism Continue home dose of levothyroxine when p.o. resumed h/o spinal stenosis Patient has some debility from chronic spinal stenosis, she uses walker or cane outside of home Based on her function is possible she will need rehab placement upon discharge Postoperative anemia secondary to acute blood loss. Repeat CBC in the morning Hypertension. Continue to hold ARB because of low normal BP. Continue to monitor DVT prophylaxis SCDs prior to surgery, resume Eliquis postop, timing per discretion of orthopedic surgeon Discharge Planning: per ortho possible discharge in the morning
--- NOTE | 2018-08-20 13:12 | P.PNOP ---
Subjective Interval history: Isabel is sitting at bedside. She is doing well this morning. She notes her pain is rated 5/10. It is currently well controlled. Physical Exam Vital signs: Vital Signs 08/19/18 14:00 08/19/18 14:15 08/19/18 14:30 Temperature 97 F L Pulse Rate 60 57 L 55 L Respiratory Rate 10 L 19 14 Blood Pressure 163/76 H 142/55 H 140/63 Pulse Oximetry 96 96 96 08/19/18 14:45 08/19/18 15:00 08/19/18 15:15 Temperature 97.8 F Pulse Rate 58 L 58 L 59 L Respiratory Rate 10 L 22 17 Blood Pressure 128/68 126/77 153/64 H Pulse Oximetry 96 96 96 08/19/18 16:00 08/19/18 20:00 08/19/18 20:10 Temperature 97.2 F L 97.6 F Pulse Rate 55 L 56 L 58 L Respiratory Rate 20 15 Blood Pressure 150/70 H 139/60 Pulse Oximetry 92 L 94 L 08/20/18 00:00 08/20/18 00:05 08/20/18 03:35 Temperature 97.7 F 97.5 F L Pulse Rate 61 67 67 Respiratory Rate 16 16 Blood Pressure 139/67 121/59 L Pulse Oximetry 95 94 L 08/20/18 04:00 08/20/18 08:00 Temperature 97.9 F Pulse Rate 65 65 Respiratory Rate 18 Blood Pressure 101/56 L Pulse Oximetry 90 L Intake & Output 08/19/18 08/20/18 08/20/18 18:59 06:59 18:59 Intake Total 1820 / 1820 50 / 50 Output Total 850 / 850 2600 / 2600 Balance 970 / 970 -2550 / -2550 Weight 67.5 kg Intake: IV 1000 / 1000 50 / 50 NS Inj 1,000 ML @ 42 mls/hr IV. 1000 / 1000 CONT .[id number] [facility] Rx#:[id number] Cleocin 900 mg/NS Premix 900 mg 50 / 50 In 50 ml @ 100 mls/hr IV.SIG Q8H [facility] Rx#:[id number] Oral 120 / 120 Anesthesia Amount 700 / 700 Output: Urine 650 / 650 Estimated Blood Loss 50 / 50 Urine Amount (Catheter) 800 / 800 1949 Indwelling Urethral Catheter 800 / 800 1950 / 1950 Other: Date of Last Bowel Movement 08/17/18 08/17/18 08/17/18 - Constitutional no acute distress - Routine Extremities Exam Comments: Focused evaluation of the right lower extremity demonstrates a dressing, clean dry intact to the lateral hip. There is positive EHL/FHL/gastroc/tibialis anterior. Sensation is intact in sural, saphenous, SP, DP, tibial nerve distribution. However it is diminished at baseline. 2+ DP and PT pulse. - Urinary Catheter Management Indwelling Urethral Catheter Cath placed during this visit: yes Reason for continuing: Other continuation reason Insertion date: 08/18/18 Insertion time: 16:45 Results - Labs CBC & Chem 7: 08/20/18 06:33 08/20/18 06:33 Laboratory Results - last 24 hr 08/20/18 08/20/18 06:33 06:33 WBC 6.7 RBC 3.68 L Hgb 11.1 L D Hct 32.7 L MCV 88.7 MCH 30.1 MCHC 33.9 RDW 13.9 Plt Count 163 MPV 8.1 Neut % (Auto) 78.3 H Lymph % (Auto) 12.3 [place] % (Auto) 8.3 H Eos % (Auto) 0.8 Baso % (Auto) 0.3 Neut # (Auto) 5.3 Lymph # (Auto) 0.8 L [place] # (Auto) 0.6 Eos # (Auto) 0.1 Baso # (Auto) 0.0 WBC Differential . Differential Comment Auto diff final Sodium 132 L Potassium 4.5 Chloride 101 Carbon Dioxide 23.3 Anion Gap 8 BUN 10 Creatinine 0.65 Estimated GFR 88 L Random Glucose 92 Calcium 8.0 L Magnesium 1.9 - Imaging Impressions Hip X-Ray 08/19/18 00:00 CONCLUSION: 1. Partially imaged right hip arthroplasty in anatomic alignment without acute fracture. Hip X-Ray 08/19/18 00:00 CONCLUSION: Postoperative right total hip replacement. Normal alignment. No complications identified. - Procedures Right bipolar hemiarthroplasty for femoral neck fracture. Assessment and Plan - Assessment and Plan 1. Right femoral neck fracture, displaced 2. History of TIA on Eliquis 3. Status post right hip bipolar hemiarthroplasty Weightbearing as tolerated to the right lower extremity with posterior hip precautions 6 weeks Multimodal pain control. A prescription for Percocet has been provided on the chart for hospital discharge May resume Eliquis on postoperative day 2 Discharge per PT recommendations. Plan for subacute nursing facility on postoperative day 2 Follow-up with Dr. Meyers in 2 weeks. Discharge instructions have been provided on the chart. All questions and concerns were addressed at bedside with patient, and HER 2 daughters.
[2018-08-20] MEDS: Methocarbamol 500 MG Tablet PO PRN (18:15)
[2018-08-20] MEDS: Polyethylene Glycol 3350 17 GM Packet PO SCH (19:54)
[2018-08-21] MEDS: Atenolol 25 MG Tablet PO SCH (08:46)
[2018-08-21] MEDS: Polyethylene Glycol 3350 17 GM Packet PO SCH (08:48)
[2018-08-21] MEDS: Methocarbamol 500 MG Tablet PO PRN (08:48)
[2018-08-21] MEDS: Pantoprazole Sodium 20 MG DR Tablet PO SCH (08:49)
[2018-08-21] MEDS ORDERED: Bisacodyl 10 MG Supp RECTAL PRN (08:49)
[2018-08-21] MEDS: Levothyroxine 100 MCG Tablet PO SCH (08:50)
--- NOTE | 2018-08-21 09:01 | P.PN ---
Subjective Interval history: This is a pleasant 78 y/o Female with Atrial Fibrillation, Hypothyroidism, Lumbar stenosis, status post left hip fracture. status post Right Bipolar hemiarthroplasty for femora neck fracture. 08/21: Seen in her bedroom, stable as per Orthopedic surgery, recommended Weightbearing as tolerated to the right lower extremity with posterior hip precautions x 6 weeks, Percocet in chart given by Orthopedic order management specialist, resume Eliquis on post op day #2. Follow up with Doctor Luigi in 2 weeks. Physical Exam Vital signs: Vital Signs 08/20/18 18:45 08/20/18 20:00 08/21/18 00:00 Temperature 98.1 F 97.3 F L Pulse Rate 68 72 Respiratory Rate 18 16 16 Blood Pressure 122/63 110/56 L Pulse Oximetry 93 L 93 L 08/21/18 04:00 08/21/18 04:30 08/21/18 08:00 Temperature 97.6 F 97.4 F L Pulse Rate 68 70 Respiratory Rate 16 18 17 Blood Pressure 141/80 H 117/59 L Pulse Oximetry 92 L 95 Intake & Output 08/20/18 08/21/18 08/21/18 18:59 06:59 18:59 Intake Total 240 / 240 1680 / 1680 Balance 240 / 240 1680 / 1680 Weight 67.5 kg Intake: Oral 240 / 240 1680 / 1680 Other: # Voids 1 2 Date of Last Bowel Movement 08/17/18 08/17/18 Narrative: GENERAL: AAOx3, no acute distress, adequate nutrition SKIN: Warm and dry, no rashes. CARDIOVASCULAR: Regular rate and rhythm. No murmur, no gallops, no rubs. RESPIRATORY: Clear and equal to auscultation bilaterally. No crackles, no wheezes. No accessory muscle use. GASTROINTESTINAL: Abdomen soft, non-tender, nondistended, normal active bowel sounds. MUSCULOSKELETAL: Dry dressing right hip NEUROLOGICAL: Awake and alert. No obvious cranial nerve deficits. - Urinary Catheter Management Indwelling Urethral Catheter Cath placed during this visit: yes Reason for continuing: Other continuation reason Insertion date: 08/18/18 Insertion time: 16:45 Results - Labs CBC & Chem 7: 08/21/18 07:45 08/20/18 06:33 - Imaging Chest X-Ray 08/18/18 07:42 CONCLUSION: No acute cardiopulmonary disease. Hip X-Ray 08/19/18 00:00 CONCLUSION: Postoperative right total hip replacement. Normal alignment. No complications identified. - Procedures Right bipolar hemiarthroplasty for femoral neck fracture. Assessment and Plan - Plan Right hip fracture Subcapital fracture of right hip following fall at home onto the bathroom floor Her last dose of Eliquis was greater than 24 hours ago, 08/17 morning Status post left hip fracture. status post Right Bipolar hemiarthroplasty for femora neck fracture. 08/21: As per Orthopedic surgery, recommended Weightbearing as tolerated to the right lower extremity with posterior hip precautions x 6 weeks, Percocet in chart given by Orthopedic order management specialist, resume Eliquis on post op day #2. Follow up with Doctor Meyers in 2 weeks. h/o atrial fibrillation Patient takes Eliquis for paroxysmal atrial fibrillation, infrequent occurrence She is currently in normal sinus rhythm without any cardiac arrhythmias on heart monitor She had a full cardiac workup within the last 2 years including stress test which was negative Continue to monitor on telemetry, resume Eliquis h/o hypothyroidism Continue home dose of levothyroxine when p.o. resumed h/o spinal stenosis Patient has some debility from chronic spinal stenosis, she uses walker or cane outside of home Based on her function is possible she will need rehab placement upon discharge Hypertension. Continue to hold ARB because of low normal BP. Continue to monitor DVT prophylaxis SCDs prior to surgery, resume Eliquis postop, timing per discretion of orthopedic surgeon Code Status: Full code. Discussed Condition With: patient, her two daughters and nurse Miss Landers Discharge Planning: patient constipated okay to discharge after good BM obtained.
[2018-08-21 09:06] LABS: Baso % (Auto) 0.5 % (0.0-2.0); Eos # (Auto) 0.3 th/mm3 (0.0-0.4); Eos % (Auto) 4.5 % (0.0-4.0); Hematocrit 32.5 % (35.0-46.0); Hemoglobin 11.1 gm/dL (11.6-15.3); Mean Corpuscular HGB Conc 34.1 % (32.0-36.0); Mean Corpuscular Hemoglobin 30.3 pg (27.0-34.0); Mean Corpuscular Volume 88.9 fL (80.0-100.0); Mean Platelet Volume 8.2 fL (7.0-11.0); Mono # (Auto) 0.5 th/mm3 (0.0-0.9); Mono % (Auto) 7.4 % (0.0-8.0); Neut # (Auto) 4.5 th/mm3 (1.8-7.7); Neut % (Auto) 71.6 % (16.0-70.0); Platelet Count 165 th/mm3 (150-450); Red Blood Count 3.65 mil/mm3 (4.00-5.30); Red Cell Distribution Width 14.2 % (11.6-17.2); White Blood Count 6.3 th/mm3 (4.0-11.0)
[2018-08-21] MEDS ORDERED: Sod Phosphate/Sod Biphosphate (Adult) Enema 133 ML Bottle RECTAL ONE (10:23)
[2018-08-22] MEDS ORDERED: Levothyroxine 100 MCG Tablet PO SCH (06:00)
[2018-08-22] MEDS: Polyethylene Glycol 3350 17 GM Packet PO SCH (08:03)
[2018-08-22] MEDS: Pantoprazole Sodium 20 MG DR Tablet PO SCH (08:03)
[2018-08-22] MEDS: Atenolol 25 MG Tablet PO SCH (08:03)
--- NOTE | 2018-08-22 08:46 | P.DS ---
Date of admission: 08/18/18 09:58 Primary care physician: Raimundo Vogel Attending physician on discharge: Deondre Sadler Anticipated date of discharge: 08/22/18 Brief History from admission: 78-year-old female with a history of atrial fibrillation, hypothyroidism, lumbar stenosis, presents to the ER after suffering a right side hip fracture early this morning. She states she wakes approximately every 2 hours due to incontinence issues, after urinating she tripped on her pajamas at her ankles and fell onto her right hip experiencing immediate pain and inability to get up. She denies any trauma to her upper extremities or shoulders or head. She has a history of lumbar stenosis which is made her balance impaired in her lower extremities, she has been using a cane or walker at times at her baseline. She walks around the house without effort, but tires easily when she is out shopping. Her atrial fibrillation was diagnosed 2 years ago, it is paroxysmal and occurs episodically only every few days. Currently in the ER despite her stress she has a normal sinus rhythm. Hypothyroidism is well managed and she has no other major medical issues. She denies any nausea vomiting or diarrhea. Denies dysuria, denies chest pain, denies shortness of breath, denies diaphoresis, denies any clotting disorder. Her last dose of Eliquis was greater than 24 hours ago, she skipped this morning's dose. DS: Diagnosis - Discharge Diagnosis (1) Closed hip fracture Status: Acute DS: Medications - Discharge Medications Prescriptions: hydrocodone-acetaminophen 1 tab PO Q4H PRN #10 tab PRN Reason: Pain DS: Summary Hospital Course: This is a pleasant 78 y/o Female with Atrial Fibrillation, Hypothyroidism, Lumbar stenosis, status post left hip fracture. status post Right Bipolar hemiarthroplasty for femora neck fracture. 08/21: Seen in her bedroom, stable as per Orthopedic surgery, recommended Weightbearing as tolerated to the right lower extremity with posterior hip precautions x 6 weeks, Percocet in chart given by Orthopedic inventory specialist manager, resume Eliquis on post op day #2. Follow up with Doctor Meyers in 2 weeks. 08/22: Patient seen in her bedroom stable no new issues, no nausea, vomit or diarrhea, had a BM yesterday after Fleet enema given, discussed with patient and nurse and her Daughter in the room, today POD#3. Assessment and Plan - Plan Right hip fracture Subcapital fracture of right hip following fall at home onto the bathroom floor Her last dose of Eliquis was greater than 24 hours ago, 08/17 morning Status post left hip fracture. status post Right Bipolar hemiarthroplasty for femora neck fracture. 08/21: As per Orthopedic surgery, recommended Weightbearing as tolerated to the right lower extremity with posterior hip precautions x 6 weeks, Percocet in chart given by Orthopedic inventory specialist manager, resume Eliquis on post op day #2. Follow up with Doctor Meyers in 2 weeks. Today Post Op day #3. h/o atrial fibrillation Patient takes Eliquis for paroxysmal atrial fibrillation, infrequent occurrence She is currently in normal sinus rhythm without any cardiac arrhythmias on heart monitor She had a full cardiac workup within the last 2 years including stress test which was negative Continue to monitor on telemetry, resumed Eliquis h/o hypothyroidism Continue home dose of levothyroxine when p.o. resumed h/o spinal stenosis Patient has some debility from chronic spinal stenosis, she uses walker or cane outside of home Based on her function is possible she will need rehab placement upon discharge Hypertension. increasing will re start her ARB medicine. DVT prophylaxis Eliquis [employer] Prescription Drug Monitoring Database has been queried and verified prior to prescribing the controlled substance. Acute pain exception. This patient has normal, predicted, physiological, and time limited response to an adverse mechanical stimulus associated with surgery, trauma, or acute illness as described in my notes. There is a lack of alternative treatment options other than to include the prescribed narcotic treatment for this condition. NOT FOUND ANY SCRIPT FOR THIS PATIENT. Code Status: Full code. Discussed Condition With: patient, Nurse and her Daughter. Discharge Planning: will go to [facility] inpatient [facility] later today. - Time Spent with Patient Total time spent providing and/or coordinating discharge services: Greater than 30 minutes - Quality: VTE Deep Vein Thrombosis/Pulmonary Embolism Present on Admission: No Exam Vital signs: Vital Signs 08/21/18 09:15 08/21/18 12:00 08/21/18 13:10 Temperature 97.4 F L Pulse Rate 66 Respiratory Rate 18 17 18 Blood Pressure 139/60 Pulse Oximetry 96 08/21/18 16:00 08/21/18 20:00 08/22/18 00:00 Temperature 98.1 F 97.8 F 97.7 F Pulse Rate 66 70 69 Respiratory Rate 17 18 18 Blood Pressure 149/68 H 137/65 114/72 Pulse Oximetry 98 95 95 08/22/18 04:00 Temperature 97.5 F L Pulse Rate 67 Respiratory Rate 18 Blood Pressure 156/68 H Pulse Oximetry 96 Intake & Output 08/21/18 08/22/18 08/22/18 18:59 06:59 18:59 Intake Total 720 / 720 200 / 200 Output Total 800 / 800 Balance -80 / -80 200 / 200 Weight 67.5 kg Intake: Oral 720 / 720 200 / 200 Output: Urine 800 / 800 Other: # Voids 4 Date of Last Bowel Movement 08/17/18 08/21/18 # Bowel Movements 1 1 Narrative: GENERAL: AAOx3, no acute distress, adequate nutrition SKIN: Warm and dry, no rashes. CARDIOVASCULAR: Regular rate and rhythm. No murmur, no gallops, no rubs. RESPIRATORY: Clear and equal to auscultation bilaterally. No crackles, no wheezes. No accessory muscle use. GASTROINTESTINAL: Abdomen soft, non-tender, nondistended, normal active bowel sounds. MUSCULOSKELETAL: Dry dressing right hip NEUROLOGICAL: Awake and alert. No obvious cranial nerve deficits. Results Procedures completed during hospitalization: Right bipolar hemiarthroplasty for femoral neck fracture. Labs on day of discharge: Labs from last 24 hours 08/21/18 07:45 WBC 6.3 RBC 3.65 L Hgb 11.1 L Hct 32.5 L MCV 88.9 MCH 30.3 MCHC 34.1 RDW 14.2 Plt Count 165 MPV 8.2 Neut % (Auto) 71.6 H Lymph % (Auto) 16.0 Brooks % (Auto) 7.4 Eos % (Auto) 4.5 H Baso % (Auto) 0.5 Neut # (Auto) 4.5 Lymph # (Auto) 1.0 Brooks # (Auto) 0.5 Eos # (Auto) 0.3 Baso # (Auto) 0.0 WBC Differential . Differential Comment Auto diff final - Impressions ITS Impressions Chest X-Ray 08/18/18 07:42 CONCLUSION: No acute cardiopulmonary disease. Hip X-Ray 08/19/18 00:00 CONCLUSION: Postoperative right total hip replacement. Normal alignment. No complications identified. Discharge Plan - Discharge Disposition Patient Disposition: 03 Discharge to SNF - Discharge Condition Condition: Good - Discharge Order Discharge Orders: Discharge Order (Routine); Ordered 08/22/18 Ordered By: Deondre Sadler - Discharge Details Anticipated Discharge Date: 08/22/18 Discharge Comment: Follow up with PCP in three days - Physicians Team Primary Care Provider: Raimundo Vogel Attending Provider: Deondre Sadler Other Providers: Agapito Meyers MD ; Gerhard Orr,[place] ; [facility],[place]
[2018-08-22 09:06] VITALS: BP 123/59; PULSE 70; TEMP 97.6; O2SAT 95
[2018-08-22 09:34] VITALS: RESP 18
== END 2018-08-22 10:29 ==
LOC: NEPE 07:19 → NEDA 09:58 → N06 12:05
PROVIDERS: ADMIT Internal Medicine; ATTEND Internal Medicine